=== PATIENT | male | born 1970 | race Caucasian/White ===

== ENCOUNTER 2019-01-29 10:29 | Outpatient (CLI) | payer OTHER | END 2019-01-29 15:00 | disposition home or self-care (01) | LOC: LAB 10:29 | DX: R10.32 Left lower quadrant pain (principal) ==

== ENCOUNTER 2019-01-30 08:18 | Outpatient (CLI) | payer OTHER | END 2019-01-30 09:00 | disposition home or self-care (01) | LOC: TOM 08:18 | DX: K21.9 Gastro-esophageal reflux disease without esophagitis (principal); R10.32 Left lower quadrant pain | CPT/HCPCS: 74177; Q9965 ==

== ENCOUNTER 2019-04-11 10:18 | Emergency (ER) | payer OTHER ==
[~2019-04-11] VITALS: Ht 177.8 cm; Wt 86.2 kg
[2019-04-11] MEDS ORDERED: PEPCID AC20 MG PO (15:50)
[2019-04-11] MEDS ORDERED: LEVSIN/SL0.125 MG SL (15:50)
[2019-04-11] MEDS ORDERED: CIPRO500 MG PO (15:50)
== END 2019-04-11 16:11 | disposition home or self-care (01) ==
LOC: ER 10:18
DX: K57.32 Diverticulitis of large intestine without perforation or abscess without bleeding (principal); N20.0 Calculus of kidney; R10.32 Left lower quadrant pain